=== PATIENT | female | born 1995 | race Caucasian/White ===

== ENCOUNTER 2016-06-25 00:30 | Emergency (ER) | payer SELFPAY ==
[2016-06-25 01:09] VITALS: BP 125/73
--- NOTE | 2016-06-25 01:19 | ED ---
Psychiatric Complaint - HPI Summary HPI Summary: 20F w/ PMH of anxiety and depression presents with cutting self. Cut left wrist with knife. She states that today she was talking with her friend about graduation and it caused her to have increased anxiety so she relieved it by placing a cut in left wrist. She also took her normal dose of hydroxyzine for as needed anxiety. She denies any suicidal thoughts. She has history of cutting her self and says that it relieves her anxiety. She denies any drug use. She occasionally smokes cigars. She admits to family history of psych. She sees a provider at . She is on lithium, prozac, gabapentin, and hydroxyzine. Her tetanus is up to date. - History Of Current Complaint Chief Complaint: ED[facility]entalHealth Time Seen by Provider: 06/25/16 00:41 - Allergies/Home Medications Allergies/Adverse Reactions: Allergies Allergy/AdvReac Type Severity Reaction Status Date / Time No Known Allergies Allergy Verified 06/25/16 00:37 PMH/Surg Hx/FS Hx/Imm Hx Respiratory History: Denies: Hx Asthma Psychiatric History: Reports: Hx Anxiety, Hx Depression Infectious Disease History: Denies: Traveled Outside the [place] in Last 30 Days - Family History Known Family History: Positive: Other - depression - Social History Alcohol Use: Occasionally Substance Use Type: Reports: None Smoking Status (MU): Current Some Day Smoker Review of Systems Negative: Fever Negative: Chest Pain Negative: Shortness Of Breath Positive: Other - laceration to left wrist Positive: Anxious, Depressed All Other Systems Reviewed And Are Negative: Yes Physical Exam Triage Information Reviewed: Yes Vital Signs On Initial Exam: Initial Vitals Temp Pulse Resp BP Pulse Ox 99.1 F 96 16 131/74 100 06/25/16 00:30 06/25/16 00:30 06/25/16 00:30 06/25/16 00:30 06/25/16 00:30 Vital Signs Reviewed: Yes Appearance: Positive: Well-Appearing Skin: Positive: Warm, Dry, Other - 3 1/2 cm by 1/2 cm laceration of left palmar aspect of forearm Head/Face: Positive: Normal Head/Face Inspection Eyes: Positive: Normal, Conjunctiva Clear Respiratory/Lung Sounds: Positive: Clear to Auscultation, Breath Sounds Present Cardiovascular: Positive: Normal, RRR Musculoskeletal: Positive: Strength/ROM Intact - of left wrist, Other - good pulses - Evelia Coma Scale Coma Scale Total: 15 Procedures - Laceration/Wound Repair 1 Location: Other - left forearm Description: Linear Anesthesia: Local, 1.0% Length, Depth and Shape: 3 1/2 cm by 1/2 cm Laceration/Wound Explored: clean Closure: Single Layer Suture Type: Prolene - 4-0 Number of Sutures: 2 Diagnostics - Vital Signs Vital Signs Temp Pulse Resp BP Pulse Ox 06/25/16 01:02 99.5 F 94 16 125/73 99 06/25/16 00:30 99.1 F 96 16 131/74 100 - Laboratory Lab Statement: Any lab studies that have been ordered have been reviewed, and results considered in the medical decision making process. Course/Dx - Course Course Of Treatment: 20F presents with cutting self today due to increase stress due to graduation. denies any SI/HI thoughts. has history of cutting self. placed 4 sutures in laceration. patient is clear for [facility]HE. patient signed out to dr sandoval pending [facility] - Differential Dx/Clinical Impression Differential Diagnosis/HQI/PQRI: Positive: Anxiety, Depression, Suicidal Ideation, Other - laceration Provider Diagnosis: Persistent mood [affective] disorder, unspecified, Laceration of left wrist Discharge - Discharge Plan Condition: Stable Disposition: OTHER Discharge Disposition Comment: signed out to dr sandoval pending [facility] Additional Instructions: Return to ED or primary in 10-14 days to have sutures removed
[2016-06-25 01:53] LABS: Hematocrit 42 % (35-47); Hemoglobin 14.1 g/dl (12.0-16.0); Mean Corpuscular HGB Conc 34 g/dl (31-36); Mean Corpuscular Hemoglobin 31 pg (27-31); Mean Corpuscular Volume 90 fL (80-97); Mean Platelet Volume 7 um3 (7.4-10.4); Red Blood Count 4.63 10^6/ul (4.0-5.4); Red Cell Distribution Width 13 % (10.5-15); White Blood Count 7.5 10^3/ul (3.5-10.8)
[2016-06-25 02:02] LABS: ALT 31 U/L (7-52); AST 22 U/L (13-39); Acetaminophen < 15 mcg/mL; Albumin 4.5 g/dL (3.2-5.2); Alcohol 49 mg/dL (<10); Alkaline Phosphatase 37 U/L (34-104); Anion Gap 11 mmol/L (2-11); BUN/Creatinine Ratio 10.8 (8-20); Blood Urea Nitrogen 9 mg/dL (6-24); CO2 Carbon Dioxide 23 mmol/L (22-32); Calcium 9.2 mg/dL (8.6-10.3); Chloride 103 mmol/L (101-111); EGFR African American 111.6 (>60); EGFR Non-African American 86.8 (>60); Globulin 2.8 g/dL (2-4); Glucose 79 mg/dL (70-100); Potassium 3.8 mmol/L (3.5-5.0); Salicylate < 2.50 mg/dL (<30); Sodium 137 mmol/L (133-145); Total Protein 7.3 g/dL (6.4-8.9)
[2016-06-25 02:13] LABS: TSH (Thyroid Stimulating Horm) 0.97 mcIU/mL (0.34-5.60)
[2016-06-25 02:25] LABS: Urine Bilirubin Negative (Negative); Urine Glucose Negative (Negative); Urine Nitrite Negative (Negative)
[2016-06-25 02:34] LABS: Benzodiazepine Urine Screen None Detected (None Detect)
== END 2016-06-25 03:58 ==
LOC: ED 00:30
DX: S51.812A Laceration without foreign body of left forearm, initial encounter (principal); F32.9 Major depressive disorder, single episode, unspecified; Z72.0 Tobacco use; F41.9 Anxiety disorder, unspecified; W26.0XXA Contact with knife, initial encounter; Y93.9 Activity, unspecified; Y92.9 Unspecified place or not applicable
CPT/HCPCS: 36415; 80053; 80307; 80320; 80329; 81003; 84443; 85025; 99284; G0480